=== PATIENT | male | born 1945 | race Two or more races ===

== ENCOUNTER 2017-05-01 10:03 | Emergency (ER) | payer MEDICARE ==
[~2017-05-01] VITALS: Ht 175.3 cm; Wt 101.6 kg
[2017-05-01 10:28] VITALS: BP 111/58
== END 2017-05-01 13:34 | disposition home or self-care (01) ==
LOC: ER 10:03
DX: M16.12 Unilateral primary osteoarthritis, left hip (principal); E11.9 Type 2 diabetes mellitus without complications; W18.39XA Other fall on same level, initial encounter; Y93.89 Activity, other specified; Y92.89 Other specified places as the place of occurrence of the external cause; Y99.8 Other external cause status
CPT/HCPCS: 73502; 73700